=== PATIENT | female | born 1965 | race Caucasian/White ===

== ENCOUNTER → 2017-04-03 | Outpatient (CLI) | payer OTHER ==
[~2017-04-03] MED LIST: HYCODAN,HYDROME10 ML PO; LOMOTIL 0.025 M1 TA1 PO; LOPRESSOR25 MG PO; Motrin,Rufen800 MG PO; PREVACID30 M1 PO; ZOFRAN ODT4 MG SL
== END | disposition home or self-care (01) ==
LOC: MAMMO 17:14
DX: Z12.31 Encounter for screening mammogram for malignant neoplasm of breast (principal)

== ENCOUNTER → 2017-09-14 | Outpatient (CLI) | payer OTHER | END | disposition home or self-care (01) | LOC: RAD 10:39 | DX: Z13.820 Encounter for screening for osteoporosis (principal); Z78.0 Asymptomatic menopausal state ==

== ENCOUNTER → 2018-05-21 | Outpatient (CLI) | payer OTHER ==
[~2018-05-21] MED LIST changes: +SIMVASTATIN10 MG PO; +TOPROL XL50 M1 PO
--- NOTE | ~2018-05-21 | EKG ---
[place], [place] ELECTROCARDIOGRAM REPORT NAME: JEREMIE SHARP UNIT #: [id number] ROOM: DOCTOR: LUBNA DRAFT REPORT BIRTHDATE: [birth year] [facility] Test Date: 2018-06-25 Test Time: 14:04:18 Pat Name: JEREMIE SHARP Department: Room: Gender: Air Analyst: RITA : 1965 Requested By: CHARLENE SALDIVAR Order Number: [id number] Reading MD: Measurements Intervals [place] Rate: 85 P: -5 [place]: 152 QRS: 17 QRSD: 78 T: 14 QT: 355 QTc: 422 Interpretive Statements Sinus rhythm Abnormal R-wave progression, early transition No previous ECG available for comparison CM:EKGRPT:ELECTROCARDIOGRAM REPORT [id number] CHARLENE CALVO DRAFT REPORT
== END | disposition home or self-care (01) ==
LOC: MAMMO 16:01
DX: Z12.31 Encounter for screening mammogram for malignant neoplasm of breast (principal)

== ENCOUNTER 2018-06-25 13:58 | Inpatient (IN) | payer OTHER ==
[2018-06-25] VITALS (7 sets, daily range): BP systolic 121–179; BP diastolic 64–90
[~2018-06-25] VITALS: Ht 157.5 cm; Wt 70.0 kg
--- NOTE | ~2018-06-25 | ST ---
[place], [place] EXERCISE STRESS TEST REPORT NAME: [facility]EMEI SHARP [facility]: [id number] UNIT #: [id number] ROOM: 405 DOCTOR: AUSTIN LU MD BIRTHDATE: [birth year] DOS: 06/26/2018 LEXISCAN STRESS EKG REPORT REFERRING PHYSICIAN: Dr. Chavez. INDICATION: Central chest pain. The patient underwent standard protocol Lexiscan stress EKG. The patient's baseline EKG showed normal sinus rhythm, nonspecific ST-T wave changes. Heart rate of 78 with a blood pressure of 128/82 at baseline, the patient's peak heart rate was 119 with a blood pressure of 120/78. The patient had no chest pain, no ischemic changes, no arrhythmias. SUMMARY OF FINDINGS: Unremarkable Lexiscan stress EKG. Please see separate report for perfusion scan results. AUSTIN LU MD CM:STRESS:EXERCISE STRESS TEST REPORT [id number] AUSTIN LU MD
--- NOTE | ~2018-06-25 | EKG ---
[place], [place] ELECTROCARDIOGRAM REPORT NAME: JEREMIE SHARP UNIT #: [id number] ROOM: 405 DOCTOR: LUBNA DRAFT REPORT BIRTHDATE: [birth year] [facility] Test Date: 2018-06-25 Test Time: 19:48:01 Pat Name: JEREMIE SHARP Department: Room: 405 Gender: F Photocomposing Keyboard Operator: CIRILO : 1965 Requested By: CHARLENE SALDIVAR Order Number: [id number] Reading MD: Zoya Andrews MD Measurements Intervals [place] Rate: 63 P: -14 [place]: 161 QRS: 20 QRSD: 74 T: 20 QT: 404 QTc: 414 Interpretive Statements Sinus rhythm Abnormal R-wave progression, early transition Electronically Signed On 06-26-2018 8:48:39 PST by Zoya Andrews MD CM:EKGRPT:ELECTROCARDIOGRAM REPORT [id number] CHARLENE CALVO DRAFT REPORT CHARLENE SALDIVAR M.D.
--- NOTE | ~2018-06-25 | EKG ---
[place], [place] ELECTROCARDIOGRAM REPORT NAME: JEREMIE SHARP UNIT #: [id number] ROOM: 405 DOCTOR: LUBNA DRAFT REPORT BIRTHDATE: [birth year] [facility] Test Date: 2018-06-25 Test Time: 16:04:39 Pat Name: JEREMIE SHARP Department: Room: 405 Gender: F Processing Archivist: MEGHAN : 1965 Requested By: CHARLENE SALDIVAR Order Number: [id number] Reading MD: Zoya Andrews MD Measurements Intervals [place] Rate: 66 P: -16 [place]: 152 QRS: 12 QRSD: 76 T: 6 QT: 408 QTc: 428 Interpretive Statements Sinus rhythm Abnormal R-wave progression, early transition Electronically Signed On 06-26-2018 8:48:34 PST by Zoya Andrews MD CM:EKGRPT:ELECTROCARDIOGRAM REPORT [id number] CHARLENE CALVO DRAFT REPORT CHARLENE SALDIVAR M.D.
--- NOTE | ~2018-06-25 | WRIGHTHP ---
[place], [place] PATIENT HISTORY AND PHYSICAL EXAM NAME: JEREMIE SHARP UNIT #: [id number] ROOM: 405 DOCTOR: SURJIT FELIZ MD BIRTHDATE: [birth year] DOS: 06/25/2018 HISTORY OF PRESENT ILLNESS: This patient is very well known to us. The patient called the office and that she has been having chest pains and palpitations since Thanks. The patient was asked to come to the Emergency Room where she was evaluated and was admitted. This morning, she states that she has had some occasional chest pains and her blood pressures have been poorly controlled, but the pressures have been normal since admission. She states that her work stress is pretty much the same at home. She has been stressed by her who has been sick. PAST MEDICAL HISTORY: Significant for; 1. Benign hypertension. 2. History of cholecystectomy. 3. History of mitral valve prolapse. 4. Peptic ulcer disease with history of Roth's esophagus. MEDICATIONS: She is on are Prevacid 30 daily, metoprolol 50 b.i.d., simvastatin 10 daily. SOCIAL HISTORY: Nonsmoker. Does not use any alcohol. PHYSICAL EXAMINATION: VITAL SIGNS: Her blood pressure is 106/70, pulse of 72, respirations 14, afebrile. LUNGS: Clear. HEART: Regular. ABDOMEN: Obese, soft and nontender. EXTREMITIES: Without any edema. LABORATORY DATA: EKG sinus rhythm. Labs shows a normal WBC count 8.7, hemoglobin 12.7, hematocrit 37.5. Comprehensive glucose 98, BUN 8, creatinine 0.77, sodium 138, potassium 3.4, chloride 106. Three sets of troponins have come back so far negative. ASSESSMENT AND PLAN: 1. The patient presents with precordial chest pain. Echocardiogram will be ordered and will be scheduling for a stress test. Cardiology consultation was already obtained. 2. Palpitations and thyroid function test will be ordered. They have come back showing slight elevation in the T4, so further workup will be initiated. 3. Possible mild anxiety could be causing some of her symptomatology, may need to consider anxiety medications will be evaluated as an outpatient before adding them. The stress test is negative, the plan is to discharge her to home today. [place], [place] PATIENT HISTORY AND PHYSICAL EXAM NAME: JEREMIE SHARP UNIT #: [id number] ROOM: 405 DOCTOR: SURJIT FELIZ MD BIRTHDATE: [birth year] SURJIT FELIZ MD CM:HISPHYS:PATIENT HISTORY AND PHYSICAL EXAMINATION 6 4 SURJIT FELIZ MD 06/26/18834 interface
[~2018-06-25 13:58] MED LIST changes: -SIMVASTATIN10 MG PO; -TOPROL XL50 M1 PO
[2018-06-25 14:13] LABS: BASO % 0.3 % (0.0-1.0); EOS # 0.1 10*3/uL (0.0-0.4); EOS % 0.7 % (1.0-4.0); HEMATOCRIT 37.5 % (37.0-47.0); HEMOGLOBIN 12.7 g/dl (12.0-16.0); LYMPH # 2.5 10*3/uL (1.3-4.4); LYMPH % 28.9 % (27.0-41.0); MEAN CELL VOLUME 89.7 fl (81.0-99.0); MEAN CORPUSCULAR HGB 30.4 pg (27.0-31.0); MEAN CORPUSCULAR HGB CONC 33.9 g/dl (33.0-37.0); MEAN PLATELET VOLUME 8.6 fl (9.6-12.3); MONO # 0.8 10*3/uL (0.1-1.0); MONO % 8.6 % (3.0-9.0); NEUT # 5.3 10*3/uL (2.3-7.9); NEUT % 61.2 % (47.0-73.0); PLATELET COUNT AUTOMATED 262 10*3/uL (130-400); RED BLOOD COUNT 4.18 10*6/uL (4.10-5.10); RED CELL DISTRI WIDTH 13.2 % (0-14.5); WHITE BLOOD COUNT 8.7 10*3/uL (4.8-10.8)
[2018-06-25 14:21] LABS: ACT PARTIAL THROMBO TIME 27.8 SECONDS (20.8-31.5); INTERNATIONAL NORM RATIO 0.9 (2.0-3.5)
[2018-06-25 14:31] LABS: ALBUMIN 3.5 gm/dl (3.1-4.5); ALKALINE PHOSPHATASE 95 U/L (45-117); BUN 8 mg/dl (7-24); CHLORIDE 106 mmol/L (98-107); CREATININE 0.77 mg/dL (0.55-1.02); POTASSIUM 3.4 mmol/L (3.5-5.1); SGOT/AST 15 IU/L (3-35); SGPT/ALT 21 U/L (12-78); SODIUM 138 mmol/L (136-145); TOTAL PROTEIN 7.4 gm/dL (6.4-8.2)
[2018-06-25 14:35] LABS: TROPONIN I < 0.015 ng/ml (<0.045)
[2018-06-25] MEDS ORDERED: TOPROL XL50 M1 PO (14:43)
[2018-06-25] MEDS ORDERED: SIMVASTATIN10 MG PO (17:10)
[2018-06-26] VITALS: BP 106/71
[2018-06-26 05:53] LABS: TROPONIN I < 0.015 ng/ml (<0.045)
[2018-06-26 06:01] LABS: T3 UPTAKE 29 % (31-39); THYROXINE (T4) TOTAL 14.5 ug/dl (4.8-13.9)
[2018-06-26 08:36] VITALS: BP 138/68
[2018-06-26 12:00] VITALS: BP 120/82
[2018-06-26 16:00] VITALS: BP 124/75
== END 2018-06-26 17:00 | disposition home or self-care (01) | DRG 313 ==
LOC: ED 13:58 → EDHOLD 15:33 → 4E 15:33
PROVIDERS: Emergency Medicine; Internal Medicine
PROC: 4A02XM4 Measurement of Cardiac Total Activity, External Approach (ICD-10-PCS; principal; 2018-06-26)
PROC: 3E073KZ Introduction of Other Diagnostic Substance into Coronary Artery, Percutaneous Approach (ICD-10-PCS; principal; 2018-06-26)
DX: R07.2 Precordial pain (principal); R00.2 Palpitations; I10 Essential (primary) hypertension; I34.1 Nonrheumatic mitral (valve) prolapse; Z88.8 Allergy status to other drugs, medicaments and biological substances; Z90.49 Acquired absence of other specified parts of digestive tract; Z90.710 Acquired absence of both cervix and uterus; Z87.11 Personal history of peptic ulcer disease

== ENCOUNTER → 2019-04-08 | Outpatient (CLI) | payer OTHER ==
[~2019-04-08] MED LIST changes: +SIMVASTATIN10 MG PO; +TOPROL XL50 M1 PO
[2019-04-08 08:41] LABS: BASO # 0.1 10*3/uL (0.0-0.1); BASO % 0.7 % (0.0-1.0); EOS # 0.1 10*3/uL (0.0-0.4); EOS % 1.4 % (1.0-4.0); HEMATOCRIT 37.4 % (37.0-47.0); HEMOGLOBIN 12.4 g/dl (12.0-16.0); LYMPH # 2.2 10*3/uL (1.3-4.4); LYMPH % 30.2 % (27.0-41.0); MEAN CELL VOLUME 91.4 fl (81.0-99.0); MEAN CORPUSCULAR HGB 30.3 pg (27.0-31.0); MEAN CORPUSCULAR HGB CONC 33.2 g/dl (33.0-37.0); MEAN PLATELET VOLUME 9.2 fl (9.6-12.3); MONO # 0.5 10*3/uL (0.1-1.0); MONO % 7.3 % (3.0-9.0); NEUT # 4.4 10*3/uL (2.3-7.9); NEUT % 59.5 % (47.0-73.0); PLATELET COUNT AUTOMATED 261 10*3/uL (130-400); RED BLOOD COUNT 4.09 10*6/uL (4.10-5.10); RED CELL DISTRI WIDTH 13.2 % (0-14.5); WHITE BLOOD COUNT 7.4 10*3/uL (4.8-10.8)
[2019-04-08 09:04] LABS: ALBUMIN 3.6 gm/dl (3.1-4.5); ALKALINE PHOSPHATASE 104 U/L (45-117); BUN 14 mg/dl (7-24); CHLORIDE 105 mmol/L (98-107); CHOLESTEROL 224 mg/dL (<200); CREATININE 1.07 mg/dL (0.55-1.02); FREE T4 0.88 ng/dl (0.76-1.46); HDL CHOLESTEROL 46 mg/dl (40-60); LDL CHOLESTEROL 119 mg/dL (9-159); SGOT/AST 24 IU/L (3-35); SGPT/ALT 36 U/L (12-78); SODIUM 139 mmol/L (136-145); TOTAL PROTEIN 7.1 gm/dL (6.4-8.2); TRIGLYCERIDES 296 mg/dl (<150); VLDL CHOLESTEROL 59 mg/dL (6-40)
[2019-04-08 09:48] LABS: VITAMIN D, 25-HYDROXY 20.8 ng/mL (30-100)
== END | disposition home or self-care (01) ==
LOC: LAB 07:53
PROVIDERS: Internal Medicine
DX: Z13.220 Encounter for screening for lipoid disorders (principal); Z13.21 Encounter for screening for nutritional disorder; Z13.1 Encounter for screening for diabetes mellitus

== ENCOUNTER → 2019-05-01 | Outpatient (CLI) | payer OTHER | END | disposition home or self-care (01) | LOC: US 09:53 | DX: N17.9 Acute kidney failure, unspecified (principal) ==

== ENCOUNTER → 2019-07-09 | Outpatient (CLI) | payer OTHER ==
[2019-07-09 08:55] LABS: ALBUMIN 3.5 gm/dl (3.1-4.5); ALKALINE PHOSPHATASE 93 U/L (45-117); BILIRUBIN, DIRECT < 0.1 mg/dL (0.0-0.2); BUN 13 mg/dl (7-24); CHLORIDE 106 mmol/L (98-107); CHOLESTEROL 185 mg/dL (<200); CREATININE 0.89 mg/dL (0.55-1.02); HDL CHOLESTEROL 49 mg/dl (40-60); LDL CHOLESTEROL 89 mg/dL (9-159); POTASSIUM 4.5 mmol/L (3.5-5.1); SGOT/AST 14 IU/L (3-35); SGPT/ALT 20 U/L (12-78); SODIUM 140 mmol/L (136-145); TOTAL PROTEIN 7.5 gm/dL (6.4-8.2); TRIGLYCERIDES 233 mg/dl (<150); VLDL CHOLESTEROL 47 mg/dL (6-40)
== END | disposition home or self-care (01) ==
LOC: LAB 07:51
PROVIDERS: Internal Medicine
DX: E78.00 Pure hypercholesterolemia, unspecified (principal)

== ENCOUNTER → 2020-01-12 | Outpatient (CLI) | payer OTHER ==
[2020-01-13 08:06] LABS: RHEUMATOID ARTHRITIS FACTOR <10.0 IU/mL (0.0-13.9)
[2020-01-14 00:05] LABS: CCP ANTIBODIES IGG/IGA 4 units (0-19)
== END | disposition home or self-care (01) ==
LOC: LAB 07:47
PROVIDERS: Internal Medicine
DX: M19.042 Primary osteoarthritis, left hand (principal); M19.041 Primary osteoarthritis, right hand; R70.0 Elevated erythrocyte sedimentation rate; R79.82 Elevated C-reactive protein (CRP); M06.9 Rheumatoid arthritis, unspecified

== ENCOUNTER → 2020-04-28 | Outpatient (CLI) | payer OTHER | END | disposition home or self-care (01) | LOC: MRI 13:52 | PROVIDERS: ATTEND Internal Medicine | DX: M25.521 Pain in right elbow (principal) ==

== ENCOUNTER → 2021-10-12 | Outpatient (CLI) | payer OTHER | END | disposition home or self-care (01) | LOC: MAMMO 08:03 | PROVIDERS: ATTEND Internal Medicine | DX: Z12.31 Encounter for screening mammogram for malignant neoplasm of breast (principal); M85.88 Other specified disorders of bone density and structure, other site; Z80.3 Family history of malignant neoplasm of breast ==

== ENCOUNTER 2022-10-29 07:45 | Emergency (ER) | payer OTHER ==
[~2022-10-29] VITALS: Ht 157.4 cm; Wt 65.8 kg
[2022-10-29 08:16] LABS: HEMATOCRIT 43.9 % (37.0-47.0); MEAN CELL VOLUME 85.9 fl (81.0-99.0); MEAN CORPUSCULAR HGB 29.7 pg (27.0-31.0); MEAN CORPUSCULAR HGB CONC 34.6 g/dl (33.0-37.0); PLATELET COUNT AUTOMATED 346 10*3/uL (130-400); RED BLOOD COUNT 5.11 10*6/uL (4.10-5.10); RED CELL DISTRI WIDTH 12.6 % (0-14.5); WHITE BLOOD COUNT 16.3 10*3/uL (4.8-10.8)
[2022-10-29 08:19] LABS: MANUAL DIFF REFLEX YES
[2022-10-29 08:32] LABS: ALKALINE PHOSPHATASE 92 U/L (46-116); BUN 15 mg/dl (9-23); CHLORIDE 104 mmol/L (98-107); LIPASE 28 U/L (12-53); POTASSIUM 3.7 mmol/L (3.4-5.1); SGPT/ALT 20 U/L (10-49)
[2022-10-29 08:38] LABS: BASOPHILS 1 % (0-1); PLATELET SUFFICIENCY NORMAL (NORMAL); POLYCHROMASIA SLIGHT; TOTAL CELLS COUNTED 100 #CELLS; TOXIC GRANULATION SLIGHT
[2022-10-29] MEDS ORDERED: Ondansetron4 MG PO (09:09)
== END 2022-10-29 09:30 | disposition home or self-care (01) ==
LOC: ED 07:45
PROVIDERS: Emergency Medicine
DX: R11.2 Nausea with vomiting, unspecified (principal); R19.7 Diarrhea, unspecified; K21.9 Gastro-esophageal reflux disease without esophagitis; I34.1 Nonrheumatic mitral (valve) prolapse; Z88.8 Allergy status to other drugs, medicaments and biological substances; Z90.49 Acquired absence of other specified parts of digestive tract; Z90.710 Acquired absence of both cervix and uterus; Z98.890 Other specified postprocedural states

== ENCOUNTER → 2023-03-28 | Outpatient (CLI) | payer OTHER ==
[~2023-03-28] MED LIST changes: +Ondansetron4 MG PO
[2023-03-28 08:52] LABS: BASO # 0.1 10*3/uL (0.0-0.1); BASO % 0.9 % (0.0-1.0); EOS # 0.1 10*3/uL (0.0-0.4); EOS % 1.6 % (1.0-4.0); HEMATOCRIT 39.9 % (37.0-47.0); LYMPH # 2.3 10*3/uL (1.3-4.4); LYMPH % 31.1 % (27.0-41.0); MEAN CELL VOLUME 88.3 fl (81.0-99.0); MEAN CORPUSCULAR HGB 29.2 pg (27.0-31.0); MEAN CORPUSCULAR HGB CONC 33.1 g/dl (33.0-37.0); MEAN PLATELET VOLUME 8.8 fl (9.6-12.3); MONO # 0.5 10*3/uL (0.1-1.0); NEUT # 4.4 10*3/uL (2.3-7.9); PLATELET COUNT AUTOMATED 264 10*3/uL (130-400); RED BLOOD COUNT 4.52 10*6/uL (4.10-5.10); WHITE BLOOD COUNT 7.4 10*3/uL (4.8-10.8)
[2023-03-28 09:16] LABS: ALKALINE PHOSPHATASE 91 U/L (46-116); BUN 10 mg/dl (9-23); CHLORIDE 105 mmol/L (98-107); CHOLESTEROL 221 mg/dL (<200); FREE T4 1.04 ng/dl (0.89-1.76); LDL CHOLESTEROL 120 mg/dL (9-159); POTASSIUM 4.2 mmol/L (3.4-5.1); SGPT/ALT 19 U/L (10-49); TOTAL PROTEIN 7.2 gm/dL (6.0-8.0); TRIGLYCERIDES 280 mg/dl (<150)
[2023-03-28 09:39] LABS: VITAMIN D, 25-HYDROXY 26.3 ng/mL (30-100)
== END | disposition home or self-care (01) ==
LOC: LAB 08:16
PROVIDERS: ATTEND Internal Medicine
DX: I10 Essential (primary) hypertension (principal); F33.0 Major depressive disorder, recurrent, mild; D51.0 Vitamin B12 deficiency anemia due to intrinsic factor deficiency; M25.511 Pain in right shoulder

== ENCOUNTER → 2023-04-18 | Outpatient (CLI) | payer OTHER | END | disposition home or self-care (01) | LOC: MAMMO 07:30 | PROVIDERS: ATTEND Internal Medicine | DX: Z12.31 Encounter for screening mammogram for malignant neoplasm of breast (principal); N63.14 Unspecified lump in the right breast, lower inner quadrant ==

== ENCOUNTER → 2023-04-19 | Outpatient (CLI) | payer OTHER | END | disposition home or self-care (01) | LOC: MRI 00:20 | PROVIDERS: ATTEND Orthopaedic Surgery | DX: M75.51 Bursitis of right shoulder (principal); M19.011 Primary osteoarthritis, right shoulder; M25.511 Pain in right shoulder; M75.41 Impingement syndrome of right shoulder; R93.6 Abnormal findings on diagnostic imaging of limbs ==

== ENCOUNTER → 2024-01-10 | Outpatient (CLI) | payer OTHER ==
[2024-01-10 07:44] LABS: BASO # 0.1 10*3/uL (0.0-0.1); BASO % 0.5 % (0.0-1.0); EOS % 0.3 % (1.0-4.0); HEMATOCRIT 40.7 % (37.0-47.0); LYMPH # 2.6 10*3/uL (1.3-4.4); LYMPH % 25.3 % (27.0-41.0); MEAN CELL VOLUME 91.5 fl (81.0-99.0); MEAN CORPUSCULAR HGB 28.8 pg (27.0-31.0); MEAN CORPUSCULAR HGB CONC 31.4 g/dl (33.0-37.0); MEAN PLATELET VOLUME 8.7 fl (9.6-12.3); MONO # 0.7 10*3/uL (0.1-1.0); MONO % 6.5 % (3.0-9.0); NEUT # 6.8 10*3/uL (2.3-7.9); NEUT % 66.4 % (47.0-73.0); PLATELET COUNT AUTOMATED 271 10*3/uL (130-400); RED BLOOD COUNT 4.45 10*6/uL (4.10-5.10); RED CELL DISTRI WIDTH 13.2 % (0-14.5); WHITE BLOOD COUNT 10.3 10*3/uL (4.8-10.8)
[2024-01-10 08:25] LABS: ALKALINE PHOSPHATASE 96 U/L (46-116); BUN 14 mg/dl (9-23); CHLORIDE 104 mmol/L (98-107); CHOLESTEROL 175 mg/dL (<200); FREE T4 1.26 ng/dl (0.89-1.76); LDL CHOLESTEROL 100 mg/dL (9-159); POTASSIUM 4.5 mmol/L (3.4-5.1); SGPT/ALT 18 U/L (5-49); TOTAL PROTEIN 7.3 gm/dL (6.0-8.0); TRIGLYCERIDES 102 mg/dl (<150)
== END | disposition home or self-care (01) ==
LOC: LAB 07:24
PROVIDERS: ATTEND Internal Medicine
DX: Z13.0 Encounter for screening for diseases of the blood and blood-forming organs and certain disorders involving the immune mechanism (principal); Z13.1 Encounter for screening for diabetes mellitus; Z13.21 Encounter for screening for nutritional disorder; Z13.220 Encounter for screening for lipoid disorders; Z13.228 Encounter for screening for other metabolic disorders; Z13.6 Encounter for screening for cardiovascular disorders; Z13.9 Encounter for screening, unspecified; I10 Essential (primary) hypertension; E11.9 Type 2 diabetes mellitus without complications; J44.9 Chronic obstructive pulmonary disease, unspecified

== ENCOUNTER → 2024-06-11 | Outpatient (CLI) | payer OTHER | END | disposition home or self-care (01) | LOC: MAMMO 09:53 | PROVIDERS: ATTEND Internal Medicine | DX: N63.13 Unspecified lump in the right breast, lower outer quadrant (principal); R92.8 Other abnormal and inconclusive findings on diagnostic imaging of breast ==

== ENCOUNTER → 2024-06-17 | Outpatient (CLI) | payer OTHER | END | disposition home or self-care (01) | LOC: EDSTATUS 13:00 → SDC 13:00 | PROVIDERS: ATTEND Internal Medicine | DX: C50.511 Malignant neoplasm of lower-outer quadrant of right female breast (principal) ==

== ENCOUNTER → 2025-06-01 | Outpatient (CLI) | payer OTHER | END | disposition home or self-care (01) | LOC: US 14:45 | PROVIDERS: ATTEND Obstetrics & Gynecology | DX: N83.202 Unspecified ovarian cyst, left side (principal); N95.0 Postmenopausal bleeding ==

== ENCOUNTER → 2025-07-16 | Outpatient (CLI) | payer OTHER | END | disposition home or self-care (01) | LOC: MAMMO 12:26 | PROVIDERS: ATTEND Internal Medicine Hematology & Oncology | DX: C50.911 Malignant neoplasm of unspecified site of right female breast (principal); R11.0 Nausea; L65.8 Other specified nonscarring hair loss; D70.9 Neutropenia, unspecified; C50.511 Malignant neoplasm of lower-outer quadrant of right female breast; Z51.81 Encounter for therapeutic drug level monitoring; Z90.710 Acquired absence of both cervix and uterus; Z45.2 Encounter for adjustment and management of vascular access device; Z51.11 Encounter for antineoplastic chemotherapy; R92.311 Mammographic fatty tissue density, right breast ==